=== PATIENT | female | born 1995 | race Caucasian/White ===

== ENCOUNTER 2017-09-03 19:15 | Emergency (ER) | payer OTHER ==
[2017-09-03 19:58] VITALS: BP 122/71; PULSE 87; RESP 18; TEMP 98.3
--- NOTE | 2017-09-03 21:00 | ED ---
General Adult HPI - General Chief complaint: ENT Stated complaint: ear pain both sides Time Seen by Provider: 09/03/17 20:23 Source: patient, RN notes reviewed Mode of arrival: ambulatory Limitations: no limitations - History of Present Illness Initial comments: 22-year-old female presents to the emergency Department for right ear pain 1 week. Patient states she went to an urgent care at that time and was diagnosed with serous otitis media and given a steroid nasal spray as well as ALLERGY medications. Patient states the pain has been consistent since his time in the medications did not help. Patient denies any fever or chills. Patient does state she has slight tenderness behind the ear. However when palpated she did not notice pain. Patient denies sore throat congestion or cough. Patient denies chest pain or shortness of breath as well. Patient has not had ear infections before except when she was very young. Patient denies any ALLERGIES to antibiotics. - Related Data Home Medications Medication Instructions Recorded Confirmed Acetaminophen [Tylenol] 325 mg PO Q4H PRN 09/03/17 09/03/17 Fluticasone Nasal [place] [Flonase 1 spray EA NOSTRIL DAILY PRN 09/03/17 09/03/17 Nasal [place]] Norethindrone-E.estradiol-Iron 1 tab PO DAILY 09/03/17 09/03/17 [Junel Fe 1 mg-20 Mcg Tablet] Previous Rx's Medication Instructions Recorded Amoxicillin/Potassium Clav 1 tab PO Q12HR #20 tab 09/03/17 [Augmentin 875-125 Tablet] Allergies Allergy/AdvReac Type Severity Reaction Status Date / Time No Known Allergies Allergy Verified 09/03/17 20:43 Review of Systems ROS Statement: Those systems with pertinent positive or pertinent negative responses have been documented in the HPI. ROS Other: All systems not noted in ROS Statement are negative. Past Medical History Past Medical History: No Reported History History of Any Multi-Drug Resistant Organisms: None Reported Past Surgical History: Tonsillectomy Past Psychological History: No Psychological Hx Reported Smoking Status: Never smoker Past Alcohol Use History: None Reported Past Drug Use History: None Reported General Exam Limitations: no limitations General appearance: alert, in no apparent distress Head exam: Present: atraumatic, normocephalic, normal inspection Eye exam: Present: normal appearance, PERRL, EOMI. Absent: scleral icterus, conjunctival injection, periorbital swelling ENT exam: Present: normal oropharynx, mucous membranes moist, other (Palpation of the mastoid did not elicit tenderness. Mastoid is not erythematous or swollen.). Absent: TM's normal bilaterally (Slightly erythematous, nonprotruding right tympanic membrane.) Neck exam: Present: normal inspection. Absent: tenderness, meningismus, lymphadenopathy Respiratory exam: Present: normal lung sounds bilaterally. Absent: respiratory distress, wheezes, rales, rhonchi, stridor Cardiovascular Exam: Present: regular rate, normal rhythm, normal heart sounds. Absent: systolic murmur, diastolic murmur, rubs, gallop, clicks GI/Abdominal exam: Present: soft, normal bowel sounds. Absent: distended, tenderness, guarding, rebound, rigid Course Vital Signs 09/03/17 19:54 Temperature 98.3 F Pulse Rate 87 Respiratory 18 Rate Blood Pressure 122/71 O2 Sat by Pulse 100 Oximetry Medical Decision Making - Medical Decision Making 22-year-old female patient presents to the emergency Department for right ear pain. She was last seen in urgent care and received a nasal spray as well as ALLERGY medications. However the pain has not gotten better over the past week so she came to the ER. Patient does have a slightly erythematous right eardrum. She does not have a history of ear infections except when she was very young. Palpation of the mastoid processes bilaterally did not elicit tenderness. No lymph nodes were palpated anterior or posterior cervically. Patient has not had any fevers or chills. Overall patient is feeling fine without any cough, congestion, shortness of breath, chest pain, or abdominal pain. She agrees to try an antibiotic. If it does not work she can come back to the emergency department or follow-up with primary care. Disposition Clinical Impression: Ear pain, right Disposition: HOME SELF-CARE Condition: Good Instructions: Earache (ED), Otitis Media (ED) Additional Instructions: Please return to the emergency department if symptoms worsen. Follow-up with primary care in 1-2 days. Prescriptions: Amoxicillin/Potassium Clav [Augmentin 875-125 Tablet] 1 tab PO Q12HR #20 tab Referrals: None,Stated [Primary Care Provider] - 1-2 days Time of Disposition: 20:52
== END 2017-09-03 21:20 | disposition home or self-care (01) ==
LOC: EC 19:15
DX: H92.01 Otalgia, right ear (principal); Z79.3 Long term (current) use of hormonal contraceptives
CPT/HCPCS: 99282

== ENCOUNTER 2017-09-24 20:01 | Emergency (ER) | payer OTHER ==
[2017-09-24 20:21] VITALS: BP 122/75; PULSE 71; RESP 16; TEMP 98.5
--- NOTE | 2017-09-24 20:35 | ED ---
General Adult HPI - General Chief complaint: ENT Stated complaint: ENT Time Seen by Provider: 09/24/17 20:22 Source: patient, RN notes reviewed Mode of arrival: ambulatory Limitations: no limitations - History of Present Illness Initial comments: 22-year-old female presents for sore to left side of the tongue. She noticed this today. She states it radiates into to the jaw. She states there hasn't been any fever or chills. She admits to history of a left otitis media in the past. There is no nausea or vomiting. Patient was concerned due to the continued pain so she thought that she should be seen.Patient denies any recent fever, chills, shortness of breath, chest pain, back pain, abdominal pain, nausea vomiting, numbness or tingling, dysuria or hematuria, constipation or diarrhea, headaches or visual changes, or any other current symptoms. - Related Data Home Medications Medication Instructions Recorded Confirmed Acetaminophen [Tylenol] 325 mg PO Q4H PRN 09/03/17 09/03/17 Fluticasone Nasal [place] [Flonase 1 spray EA NOSTRIL DAILY PRN 09/03/17 09/03/17 Nasal [place]] Norethindrone-E.estradiol-Iron 1 tab PO DAILY 09/03/17 09/03/17 [Junel Fe 1 mg-20 Mcg Tablet] Previous Rx's Medication Instructions Recorded Amoxicillin/Potassium Clav 1 tab PO Q12HR #20 tab 09/03/17 [Augmentin 875-125 Tablet] Allergies Allergy/AdvReac Type Severity Reaction Status Date / Time No Known Allergies Allergy Verified 09/24/17 20:21 Review of Systems ROS Statement: Those systems with pertinent positive or pertinent negative responses have been documented in the HPI. ROS Other: All systems not noted in ROS Statement are negative. Past Medical History Past Medical History: No Reported History History of Any Multi-Drug Resistant Organisms: None Reported Past Surgical History: Tonsillectomy Past Psychological History: No Psychological Hx Reported Smoking Status: Never smoker Past Alcohol Use History: None Reported Past Drug Use History: None Reported General Exam Limitations: no limitations General appearance: alert, in no apparent distress Eye exam: Present: normal appearance, PERRL, EOMI. Absent: scleral icterus, conjunctival injection, periorbital swelling ENT exam: Present: normal oropharynx, mucous membranes moist, TM's normal bilaterally, normal external ear exam, other (Patient does appear to be canker sores the left side of the tongue) Neck exam: Present: normal inspection. Absent: tenderness, meningismus, lymphadenopathy Respiratory exam: Present: normal lung sounds bilaterally. Absent: respiratory distress, wheezes, rales, rhonchi, stridor Cardiovascular Exam: Present: regular rate, normal rhythm, normal heart sounds. Absent: systolic murmur, diastolic murmur, rubs, gallop, clicks Neurological exam: Present: alert, oriented X3 Psychiatric exam: Present: normal affect, normal mood Skin exam: Present: warm, dry, intact, normal color. Absent: rash Course Vital Signs 09/24/17 20:18 Temperature 98.5 F Pulse Rate 71 Respiratory 16 Rate Blood Pressure 122/75 O2 Sat by Pulse 100 Oximetry Medical Decision Making - Medical Decision Making 22 yo female presents to the ER with cc of what appears to be canker sore. At this time we did discuss intermediate we discussed follow-up we discussed return parameters all questions. Patient stated she understood and she is.. All questions have been answered. She'll be discharged. Disposition Clinical Impression: Canker sores oral Disposition: HOME SELF-CARE Condition: Stable Instructions: Canker Sores (ED) Additional Instructions: Please use medication as discussed. Please follow up with family doctor if symptoms have not improved over the next two days. Please return to the emergency room if your symptoms increase or worsen or for any other concerns. Referrals: Cleveland Felder III, MD [STAFF PHYSICIAN] - 1-2 days Time of Disposition: 20:35
== END 2017-09-24 20:45 | disposition home or self-care (01) ==
LOC: EC 20:01
DX: K12.0 Recurrent oral aphthae (principal); Z79.3 Long term (current) use of hormonal contraceptives
CPT/HCPCS: 99282

== ENCOUNTER 2017-10-03 13:56 | Emergency (ER) | payer OTHER ==
[2017-10-03 14:05] VITALS: BP 125/73; PULSE 90; RESP 18; TEMP 99.3
--- NOTE | 2017-10-03 15:58 | ED ---
General Adult HPI - General Chief complaint: Skin/Abscess/Foreign Body Stated complaint: Red Bruising all over legs Time Seen by Provider: 10/03/17 14:49 Source: patient, RN notes reviewed Mode of arrival: ambulatory Limitations: no limitations - History of Present Illness Initial comments: 22 year old female presents to the emergency department for a chief complaint of rash. Patient states this has been going on for about 3 days. Patient denies any other symptoms including sore throat, cough, congestion. Patient was treated for an ear infection one month ago which has resolved. Patient has no medical history that she is aware of. Patient has not started any new medications. The rash is on her bilateral thighs. It is also noted on her arms and lower legs. The rash has not seen ulcer. Patient has taken ibuprofen for the pain. Patient states they are tender if you like a bruise when pressed. Patient denies any itching. Patient denies any other symptoms at this time including shortness of breath, chest pain, abdominal pain, nausea, or vomiting. - Related Data Home Medications Medication Instructions Recorded Confirmed Norethindrone-E.estradiol-Iron 1 tab PO DAILY 09/03/17 10/03/17 [Junel Fe 1 mg-20 Mcg Tablet] Previous Rx's Medication Instructions Recorded predniSONE 50 mg PO DAILY #5 tablet 10/03/17 Allergies Allergy/AdvReac Type Severity Reaction Status Date / Time No Known Allergies Allergy Verified 10/03/17 15:54 Review of Systems ROS Statement: Those systems with pertinent positive or pertinent negative responses have been documented in the HPI. ROS Other: All systems not noted in ROS Statement are negative. Past Medical History Past Medical History: No Reported History History of Any Multi-Drug Resistant Organisms: None Reported Past Surgical History: Tonsillectomy Past Psychological History: No Psychological Hx Reported Smoking Status: Never smoker Past Alcohol Use History: None Reported Past Drug Use History: None Reported General Exam Limitations: no limitations Eye exam: Present: normal appearance, PERRL, EOMI. Absent: scleral icterus, conjunctival injection, periorbital swelling ENT exam: Present: normal exam, normal oropharynx, mucous membranes moist, TM's normal bilaterally (Otitis media seems to have resolved. No erythema noted.) Neck exam: Present: normal inspection. Absent: tenderness, meningismus, lymphadenopathy Respiratory exam: Present: normal lung sounds bilaterally. Absent: respiratory distress, wheezes, rales, rhonchi, stridor Cardiovascular Exam: Present: regular rate, normal rhythm, normal heart sounds. Absent: systolic murmur, diastolic murmur, rubs, gallop, clicks GI/Abdominal exam: Present: soft, normal bowel sounds. Absent: distended, tenderness, guarding, rebound, rigid Skin exam: Present: rash (Multiple 1 cm raised nodule blanching erythematous lesions on the bilateral anterior thighs. There are a few on the bilateral arms and lower legs as well. Patient denies pruritus.) Course Vital Signs 10/03/17 14:03 Temperature 99.3 F Pulse Rate 90 Respiratory 18 Rate Blood Pressure 125/73 O2 Sat by Pulse 100 Oximetry Medical Decision Making - Medical Decision Making 22-year-old female presents to the emergency department for a chief complaint of rash 3 days. Patient states it is painful to touch and feels like a bruise. Patient denies itchiness. She states they go away when you touch them and they are less red now than they were earlier. Patient states she has tried ibuprofen which does help. Patient's vitals are within normal limits. Patient has no other complaints at this time including sore throat, ear pain, shortness of breath, chest pain, cough, abdominal pain, nausea or vomiting. Patient will be given steroids as this is likely erythema nodosum. She is to follow-up with dermatology in 1-2 days. She was given the number for them. She is to return to the emergency department if symptoms worsen or she begins to develop shortness of breath. Disposition Clinical Impression: Erythema nodosum Disposition: HOME SELF-CARE Condition: Good Instructions: Urticaria (ED) Additional Instructions: Please return to the emergency department if symptoms worsen. Otherwise follow- up with dermatology in 1-2 days. You may take Motrin or tylenol for the pain. Take steroids as directed. Prescriptions: predniSONE 50 mg PO DAILY #5 tablet Referrals: None,Stated [Primary Care Provider] - 1-2 days Meme Mota MD [STAFF PHYSICIAN] - 1-2 days Time of Disposition: 15:57
== END 2017-10-03 16:12 | disposition home or self-care (01) ==
LOC: EC 13:56
DX: L52 Erythema nodosum (principal); Z79.3 Long term (current) use of hormonal contraceptives
CPT/HCPCS: 99282